=== PATIENT | male | born 1950 ===

== ENCOUNTER 2021-03-22 11:14 | Observation (INO) ==
[~2021-03-22 11:14] MED LIST: IRINOTECAN SCH; Ondansetron ODT 4 mg TAB 4 MG TAB SL PRN
[2021-03-22] MEDS ORDERED: Ondansetron 4 mg VIAL 2 MG/ML 2 ml VIAL ONE ×2 (11:47→15:18)
[2021-03-22] MEDS ORDERED: Naloxone 0.4 mg VIAL 0.4 mg/ml 1 ml VIAL IV PUSH PRN (12:04)
[2021-03-22 12:28] LABS: ABS Eosinophils 0.1 10^3/ul (0-0.6); ABS Monocytes 0.7 10^3/ul (0-0.8); ABS Neutrophils 4.6 10^3/ul (1.5-7.7); Eosinophil % 1.3 %; Hematocrit 42 % (42-52); Hemoglobin 14.5 g/dL (14.0-18.0); Lymphocyte % 14.9 %; Mean Corpuscular HGB Conc 34 g/dL (31-36); Mean Corpuscular Hemoglobin 37 pg (27-31); Mean Corpuscular Volume 108 fL (80-94); Mean Platelet Volume 8.2 fL (7.4-10.4); Platelet Count 179 10^3/uL (150-450); Red Blood Count 3.91 10^6 /uL (4.18-5.48); Red Cell Distribution Width 16 % (10-15); White Blood Count 6.4 10^3/uL (3.5-10.8)
[2021-03-22 12:30] LABS: Activated Partial Thrombo Time 32.7 seconds (26.0-38.0); INR 1.11 (0.86-1.15)
[2021-03-22] MEDS ORDERED: Lidocaine 1% VIAL 10 MG/ML VIAL ONE (12:33)
[2021-03-22] MEDS ORDERED: Heparin 2 UNITS/ML IVPREMIX 2,000 UNIT/1,000 ML BAG IV ONE (12:34)
[2021-03-22] MEDS ORDERED: Iohexol 350 (CONTRAST) 200 ML MDV IV ONE ×4 (12:34→14:50)
[2021-03-22 12:39] LABS: Albumin 4.2 g/dL (3.2-5.2); Calcium 9.6 mg/dL (8.6-10.3); Globulin 4.2 g/dL (2-4); Potassium 4.1 mmol/L (3.5-5.0); Total Protein 8.4 g/dL (6.4-8.9)
[2021-03-22] MEDS ORDERED: Midazolam 5 mg/5 ml VIAL 1 mg/ml 5 ml VIAL (5 mg) ONE ×2 (12:42→15:37)
[2021-03-22] MEDS ORDERED: fentaNYL 100 mcg/2 ml 50 MCG/ML VIAL ONE ×3 (12:42→16:01)
[2021-03-22] MEDS ORDERED: Heparin 2 UNITS/ML IVPREMIX 1,000 UNIT/500 ML BAG IV ONE ×2 (13:17→14:08)
[2021-03-22] MEDS ORDERED: HYDROmorphone PCA 20 MG/20 ML PCA.SYRING PCA SCH (15:30)
[2021-03-22] MEDS: NS 0.9% 1000 ml BAG 1,000 ML IV SCH ×2 (16:36→21:15)
[2021-03-23 05:15] LABS: ABS Lymphocytes 0.6 10^3/ul (1.0-4.8); ABS Monocytes 0.9 10^3/ul (0-0.8); ABS Neutrophils 6.2 10^3/ul (1.5-7.7); Hematocrit 37 % (42-52); Hemoglobin 12.5 g/dL (14.0-18.0); Lymphocyte % 8.1 %; Mean Corpuscular HGB Conc 34 g/dL (31-36); Mean Corpuscular Hemoglobin 37 pg (27-31); Mean Corpuscular Volume 110 fL (80-94); Mean Platelet Volume 8.1 fL (7.4-10.4); Platelet Count 150 10^3/uL (150-450); Red Blood Count 3.37 10^6 /uL (4.18-5.48); Red Cell Distribution Width 17 % (10-15); White Blood Count 7.8 10^3/uL (3.5-10.8)
[2021-03-23 05:31] LABS: Albumin 3.7 g/dL (3.2-5.2); Calcium 8.8 mg/dL (8.6-10.3); Globulin 3.6 g/dL (2-4); Potassium 4.2 mmol/L (3.5-5.0); Total Bilirubin 0.8 mg/dL (0.2-1.0); Total Protein 7.3 g/dL (6.4-8.9); eGFR CKD-EPI 93.3 (>60)
[2021-03-23] MEDS: NS 0.9% 1000 ml BAG 1,000 ML IV SCH (07:09)
[2021-03-23 08:50] VITALS: BP 117/75
== END 2021-03-23 12:45 | disposition home or self-care (01) ==
LOC: CHICATH 11:14 → SSU 11:14
PROVIDERS: ADMIT Internal Medicine Medical Oncology; ATTEND Internal Medicine Medical Oncology

== ENCOUNTER 2021-07-19 09:20 | Observation (INO) ==
[~2021-07-19 09:20] MED LIST changes: +IRINOTECAN IVPB SCH; -IRINOTECAN SCH; -Ondansetron ODT 4 mg TAB 4 MG TAB SL PRN
[2021-07-19] MEDS ORDERED: Nitro 2% OINT (Nitroglycerin) 1 INCH/PAK ONE (10:04)
[2021-07-19] MEDS ORDERED: Midazolam 5 mg/5 ml VIAL 1 mg/ml 5 ml VIAL (5 mg) ONE (10:10)
[2021-07-19] MEDS ORDERED: Lidocaine 1% MPF 5 ML VIAL ONE (10:42)
[2021-07-19] MEDS ORDERED: Heparin 2 UNITS/ML IVPREMIX 3,000 UNIT/1,500 ML BAG IV ONE (10:42)
[2021-07-19] MEDS ORDERED: Iohexol 350 (CONTRAST) 200 ML MDV IV ONE ×2 (10:42→11:42)
[2021-07-19] MEDS ORDERED: cefTRIAXone 1 gm/50 mL D5W 1 GM/50 ML BAG IV ONE (10:45)
[2021-07-19] MEDS ORDERED: nitroGLYCERIN DRIP 25,000 MCG/250 ML BTL ONE (10:46)
[2021-07-19] MEDS ORDERED: Heparin 1,000 UNIT/ML 10 ml (10,000 UNITS) CATHLAB/DIALYSIS ONE (10:46)
[2021-07-19] MEDS ORDERED: VERAPAMIL 2.5 MG/ML 2 ML VIAL ** 5 mg/2 ml ONE (10:47)
[2021-07-19] MEDS ORDERED: fentaNYL 100 mcg/2 ml 50 MCG/ML VIAL ONE ×2 (10:49→14:11)
[2021-07-19] MEDS ORDERED: HYDROmorphone PCA 1 MG/ML Titrat per Protocol PCA SCH (11:00)
[2021-07-19] MEDS: NS 0.9% 1,000 ML IV SCH ×2 (11:00→20:54)
[2021-07-19] MEDS ORDERED: Midazolam 5 mg/5 ml VIAL 1 mg/ml 5 ml VIAL (5 mg) IV SLOW PU ONE (11:00)
[2021-07-19] MEDS ORDERED: Ondansetron ODT 4 mg TAB 4 MG TAB SL PRN (13:03)
[2021-07-19] MEDS ORDERED: Ondansetron 4 mg VIAL 2 MG/ML 2 ml VIAL ONE (14:13)
[2021-07-19] MEDS: Ondansetron 4 mg VIAL 2 MG/ML 2 ml VIAL IV PRN (21:02)
[2021-07-20] MEDS: Ondansetron 4 mg VIAL 2 MG/ML 2 ml VIAL IV PRN (03:34)
[2021-07-20 06:23] LABS: ABS Lymphocytes 0.5 10^3/ul (1.0-4.8); ABS Monocytes 0.6 10^3/ul (0-0.8); ABS Neutrophils 4.7 10^3/ul (1.5-7.7); Eosinophil % 0.1 %; Hematocrit 36 % (42-52); Hemoglobin 12.2 g/dL (14.0-18.0); Lymphocyte % 8.1 %; Mean Corpuscular HGB Conc 34 g/dL (31-36); Mean Corpuscular Hemoglobin 37 pg (27-31); Mean Corpuscular Volume 108 fL (80-94); Mean Platelet Volume 8.4 fL (7.4-10.4); Platelet Count 128 10^3/uL (150-450); Red Blood Count 3.31 10^6 /uL (4.18-5.48); Red Cell Distribution Width 18 % (10-15); White Blood Count 5.8 10^3/uL (3.5-10.8)
[2021-07-20 06:34] LABS: Albumin 3.4 g/dL (3.2-5.2); Calcium 8.5 mg/dL (8.6-10.3); Globulin 3.4 g/dL (2-4); Potassium 3.8 mmol/L (3.5-5.0); Total Bilirubin 0.8 mg/dL (0.2-1.0); Total Protein 6.8 g/dL (6.4-8.9); eGFR CKD-EPI 99.2 (>60)
[2021-07-20] MEDS: NS 0.9% 1,000 ML IV SCH (07:26)
[2021-07-20] MEDS ORDERED: Al Hydrox/Mg Hydrox/Simet LIQ 30 ML UDC PO ONE (08:34)
[2021-07-20] MEDS ORDERED: Metoclopramide 5 MG/ML VIAL (10 mg) IV PRN (08:35)
[2021-07-20 12:39] VITALS: BP 115/69
== END 2021-07-20 13:35 | disposition home or self-care (01) ==
LOC: SSU 09:20 → CHICATH 09:20 → SSU 19:11
PROVIDERS: ADMIT Internal Medicine Medical Oncology; ATTEND Student in an Organized Health Care Education/Training Program

== ENCOUNTER 2022-11-19 09:51 | Inpatient (IN) ==
[~2022-11-19 09:51] MED LIST changes: +Cefepime 2 GM in NS 0.9% 50 ML BAG IVPB SCH; -IRINOTECAN IVPB SCH
[2022-11-19] MEDS ORDERED: Magnesium Sulfate 2 gm BAG 2 GM/50 ML BAG ONE (10:06)
[2022-11-19 10:20] LABS: ABS Neutrophils 29.2 10^3/uL (1.5-7.6); Hemoglobin 13.7 g/dL (13.2-16.3); Mean Corpuscular Hemoglobin 36.6 pg (27-33); Mean Corpuscular Hgb Conc 33.5 g/dL (31-36); Mean Corpuscular Volume 109.2 fL (80-97); Mean Platelet Volume 8.3 fL (7.5-11.2); Platelet Count 96 10^3/uL (150-450); Red Blood Count 3.75 10^6/uL (4.06-5.63); Red Cell Distribution Width 18.7 % (12-17); White Blood Count 32.8 10^3/uL (3.6-10.2)
[2022-11-19 10:36] LABS: Albumin 3.3 g/dL (3.2-5.2); Calcium 9.1 mg/dL (8.6-10.3); Creatinine, Serum 1.67 mg/dL (0.67-1.17); Globulin 3.4 g/dL (2-4); Magnesium 1.7 mg/dL (1.9-2.7); Potassium 4.1 mmol/L (3.5-5.0); Total Bilirubin 2.1 mg/dL (0.2-1.0); Total Protein 6.7 g/dL (6.4-8.9); eGFR CKD-EPI 42.9 (>60)
[2022-11-19 10:42] LABS: ABS Basophils 0.1 10^3/uL (0.0-0.1); ABS Lymphocytes 0.5 10^3/uL (1.0-4.8); ABS Nucleated RBC 0.11 10^3/ul; Lymphocyte % 1.6 %; Nucleated Red Blood Cells % 0.3 /100 WBC (0.0-0.4)
[2022-11-19 13:40] LABS: Urine Appearance Cloudy; Urine Bilirubin Negative (Negative); Urine Blood Negative (Negative); Urine Color Yellow; Urine Glucose 1+(50 mg/dL) (Negative); Urine Ketones Negative (Negative); Urine Nitrite Negative (Negative); Urine Protein 1+(30 mg/dL) (Negative); Urine Specific Gravity 1.015 (1.002-1.030); Urine Urobilinogen Negative (Negative)
[2022-11-19 13:51] LABS: Urine Amorphous Crystals Present (Absent); Urine Bacteria 1+ (Absent); Urine Granular Casts Present (Absent); Urine Red Blood Cell Trace(0-2/hpf) (Absent); Urine Squamous Epithelial Cell Present (Absent); Urine White Blood Cell 1+(6-10/hpf) (Absent)
[2022-11-19] MEDS ORDERED: HYDROcodone/ACETAMIN 5/325 mg TAB ONE (14:14)
[2022-11-19] MEDS ORDERED: Piperacillin/Tazobac 3.375 BAG 3.375 GM/100 ML BAG IV ONE (16:58)
[2022-11-19] MEDS ORDERED: Zosyn per Pharmacy NOTE FOLLOW UP SCH (17:00)
[2022-11-19] MEDS: NS 0.9% 1000 ml BAG 1,000 ML IV SCH (18:39)
[2022-11-19] MEDS: HYDROcodone/ACETAMIN 5/325 mg TAB PO PRN ×2 (18:39→22:39)
[2022-11-19] MEDS: ZOSYN 3.375 GM Q8H per EXTENDED INFUSION IV SCH (22:40)
[2022-11-20] MEDS: NS 0.9% 1000 ml BAG 1,000 ML IV SCH ×2 (04:36→22:06)
[2022-11-20] MEDS: Cefepime 2 GM in Dextrose 2 GM/50 ML BAG IV SCH ×2 (05:05→18:27)
[2022-11-20] MEDS: HYDROcodone/ACETAMIN 5/325 mg TAB PO PRN ×4 (05:09→20:29)
[2022-11-20] MEDS: ZOSYN 3.375 GM Q8H per EXTENDED INFUSION IV SCH ×3 (05:41→22:06)
[2022-11-20 06:07] LABS: Hematocrit 30.6 % (38-53); Hemoglobin 10.4 g/dL (13.2-16.3); Mean Corpuscular Hemoglobin 37.2 pg (27-33); Mean Corpuscular Hgb Conc 34.2 g/dL (31-36); Red Blood Count 2.81 10^6/uL (4.06-5.63); Red Cell Distribution Width 18.7 % (12-17); White Blood Count 11.2 10^3/uL (3.6-10.2)
[2022-11-20 06:36] LABS: Albumin 2.6 g/dL (3.2-5.2); Creatinine, Serum 1.19 mg/dL (0.67-1.17); Globulin 2.7 g/dL (2-4); Magnesium 2.1 mg/dL (1.9-2.7); Potassium 3.6 mmol/L (3.5-5.0); Total Bilirubin 1.5 mg/dL (0.2-1.0); Total Protein 5.3 g/dL (6.4-8.9); eGFR CKD-EPI 64.5 (>60)
[2022-11-20 08:49] LABS: ABS Eosinophils 0.1 10^3/uL (0.0-0.5); ABS Lymphocytes 0.5 10^3/uL (1.0-4.8); ABS Monocytes 1.5 10^3/uL (0.0-1.1); ABS Neutrophils 9.2 10^3/uL (1.5-7.6); Eosinophil % 0.8 %; Lymphocyte % 4.7 %; Mean Platelet Volume 8.5 fL (7.5-11.2); Platelet Count 38 10^3/uL (150-450)
[2022-11-21] MEDS: HYDROcodone/ACETAMIN 5/325 mg TAB PO PRN ×5 (03:06→22:24)
[2022-11-21] MEDS ORDERED: Calcium Carb (TUMS) 500 mg CHEW TAB PO ONE ×2 (03:18→21:02)
[2022-11-21] MEDS: Cefepime 2 GM in Dextrose 2 GM/50 ML BAG IV SCH ×2 (05:25→19:14)
[2022-11-21] MEDS: ZOSYN 3.375 GM Q8H per EXTENDED INFUSION IV SCH (06:00)
[2022-11-21 09:23] LABS: Hematocrit 32.4 % (38-53); Hemoglobin 11.4 g/dL (13.2-16.3); Mean Corpuscular Hemoglobin 37.6 pg (27-33); Mean Corpuscular Hgb Conc 35.2 g/dL (31-36); Mean Corpuscular Volume 106.8 fL (80-97); Red Blood Count 3.04 10^6/uL (4.06-5.63); Red Cell Distribution Width 18.4 % (12-17); White Blood Count 10.5 10^3/uL (3.6-10.2)
[2022-11-21 09:45] LABS: Calcium 7.6 mg/dL (8.6-10.3); Magnesium 1.7 mg/dL (1.9-2.7); Potassium 3.3 mmol/L (3.5-5.0)
[2022-11-21 09:51] LABS: Creatinine, Serum 0.96 mg/dL (0.67-1.17); eGFR CKD-EPI 83.5 (>60)
[2022-11-21 10:01] LABS: ABS Basophils 0.1 10^3/uL (0.0-0.1); ABS Eosinophils 0.1 10^3/uL (0.0-0.5); ABS Lymphocytes 0.5 10^3/uL (1.0-4.8); ABS Monocytes 1.3 10^3/uL (0.0-1.1); ABS Neutrophils 8.5 10^3/uL (1.5-7.6); ABS Nucleated RBC 0.01 10^3/ul; Mean Platelet Volume 8.4 fL (7.5-11.2); Platelet Count 44 10^3/uL (150-450)
[2022-11-21] MEDS ORDERED: Potassium Chlor 20 meq TAB.ER PO ONE (10:40)
[2022-11-21] MEDS ORDERED: Magnesium Sulfate IV 3 GM in NS 0.9% 100 ml BAG 100 ML IVPB ONE (10:40)
[2022-11-21] MEDS ORDERED: Diphenoxylat/Atrop 2.5-0.025mg TAB PO PRN (18:32)
[2022-11-22] MEDS ORDERED: PEG 3000 GI LAVAGE 1 GALLON PO ONE (02:48)
[2022-11-22] MEDS: HYDROcodone/ACETAMIN 5/325 mg TAB PO PRN ×5 (02:59→23:40)
[2022-11-22] MEDS: Ondansetron 4 mg VIAL 2 MG/ML 2 ml VIAL IV PRN ×2 (03:00→08:03)
[2022-11-22] MEDS: Cefepime 2 GM in Dextrose 2 GM/50 ML BAG IV SCH (05:16)
[2022-11-22 09:25] LABS: ABS Eosinophils 0.1 10^3/uL (0.0-0.5); ABS Lymphocytes 0.6 10^3/uL (1.0-4.8); ABS Monocytes 1.3 10^3/uL (0.0-1.1); ABS Neutrophils 8.9 10^3/uL (1.5-7.6); ABS Nucleated RBC 0.02 10^3/ul; Eosinophil % 1.2 %; Hematocrit 38.1 % (38-53); Hemoglobin 12.9 g/dL (13.2-16.3); Lymphocyte % 5.7 %; Mean Corpuscular Hemoglobin 36.8 pg (27-33); Mean Corpuscular Hgb Conc 33.9 g/dL (31-36); Mean Corpuscular Volume 108.6 fL (80-97); Mean Platelet Volume 10.7 fL (7.5-11.2); Nucleated Red Blood Cells % 0.2 /100 WBC (0.0-0.4); Platelet Count 75 10^3/uL (150-450); Red Blood Count 3.51 10^6/uL (4.06-5.63); Red Cell Distribution Width 18.4 % (12-17)
[2022-11-22 10:45] LABS: Calcium 8.4 mg/dL (8.6-10.3); Creatinine, Serum 0.79 mg/dL (0.67-1.17); Potassium 3.8 mmol/L (3.5-5.0); eGFR CKD-EPI 93.8 (>60)
[2022-11-22 11:53] LABS: Magnesium 1.9 mg/dL (1.9-2.7)
[2022-11-22] MEDS ORDERED: Lidocaine 2% JELLY 6 ML Topical TOPICAL ONE (12:03)
[2022-11-22] MEDS ORDERED: Naloxone 0.4 mg VIAL 0.4 mg/ml 1 ml VIAL IV PUSH PRN (12:03)
[2022-11-22] MEDS ORDERED: fentaNYL 100 mcg/2 ml 50 MCG/ML VIAL IV SLOW PU ONE (12:03)
[2022-11-22] MEDS ORDERED: Lactated Ringers 1000 ml BAG 1,000 ML IV ONE (12:03)
[2022-11-22] MEDS ORDERED: Midazolam 10 mg/10 ml VIAL 1 mg/ml 10 ml VIAL (10 mg) IV SLOW PU ONE (12:03)
[2022-11-22] MEDS ORDERED: Ondansetron 4 mg VIAL 2 MG/ML 2 ml VIAL IV ONE (12:03)
[2022-11-22] MEDS ORDERED: Flumazenil 0.5 mg/5 ml 0.1 MG/ML 5 ml VIAL IV PRN (12:03)
[2022-11-22] MEDS ORDERED: Midazolam 10 mg/10 ml VIAL 1 mg/ml 10 ml VIAL (10 mg) ONE (13:37)
[2022-11-22] MEDS ORDERED: fentaNYL 100 mcg/2 ml 50 MCG/ML VIAL ONE (13:37)
[2022-11-22] MEDS: ceFAZolin 2 GM in NS PREMIX 2 GM/100 ML BAG IVPB SCH ×2 (16:14→23:32)
[2022-11-22] MEDS: Diphenoxylat/Atrop 2.5-0.025mg TAB PO PRN ×2 (18:24→23:40)
[2022-11-23] MEDS: HYDROcodone/ACETAMIN 5/325 mg TAB PO PRN ×5 (04:05→22:16)
[2022-11-23] MEDS ORDERED: ceFAZolin 2 GM in NS PREMIX 2 GM/100 ML BAG IVPB SCH (06:00)
[2022-11-23] MEDS: Diphenoxylat/Atrop 2.5-0.025mg TAB PO PRN ×2 (06:30→14:15)
[2022-11-23] MEDS: Ondansetron 4 mg VIAL 2 MG/ML 2 ml VIAL IV PRN (06:31)
[2022-11-23] MEDS: ceFAZolin 2 GM PREMIX 2 GM/50 ML BAG IV SCH ×3 (06:31→22:17)
[2022-11-23 06:40] LABS: ABS Eosinophils 0.2 10^3/uL (0.0-0.5); ABS Lymphocytes 0.6 10^3/uL (1.0-4.8); ABS Monocytes 1.2 10^3/uL (0.0-1.1); ABS Neutrophils 5.9 10^3/uL (1.5-7.6); Eosinophil % 2.2 %; Hematocrit 31.2 % (38-53); Hemoglobin 10.8 g/dL (13.2-16.3); Mean Corpuscular Hemoglobin 37.4 pg (27-33); Mean Corpuscular Hgb Conc 34.8 g/dL (31-36); Mean Corpuscular Volume 107.3 fL (80-97); Mean Platelet Volume 8.7 fL (7.5-11.2); Platelet Count 55 10^3/uL (150-450); Red Cell Distribution Width 18.6 % (12-17); White Blood Count 7.9 10^3/uL (3.6-10.2)
[2022-11-23 06:47] LABS: Calcium 8.2 mg/dL (8.6-10.3); Creatinine, Serum 0.74 mg/dL (0.67-1.17); Potassium 3.9 mmol/L (3.5-5.0); eGFR CKD-EPI 95.7 (>60)
[2022-11-23] MEDS: Cholestyramine Resin 4 GM POWDER PO SCH ×2 (15:00→22:16)
[2022-11-23] MEDS: Calcium Carb (TUMS) 500 mg CHEW TAB PO PRN ×2 (15:01→22:17)
[2022-11-24] MEDS: HYDROcodone/ACETAMIN 5/325 mg TAB PO PRN ×4 (02:51→20:43)
[2022-11-24] MEDS: ceFAZolin 2 GM PREMIX 2 GM/50 ML BAG IV SCH ×3 (05:17→20:49)
[2022-11-24] MEDS: Diphenoxylat/Atrop 2.5-0.025mg TAB PO PRN ×3 (05:21→19:38)
[2022-11-24 06:06] LABS: ABS Eosinophils 0.1 10^3/uL (0.0-0.5); ABS Lymphocytes 0.6 10^3/uL (1.0-4.8); ABS Monocytes 1.3 10^3/uL (0.0-1.1); ABS Neutrophils 6.6 10^3/uL (1.5-7.6); ABS Nucleated RBC 0.01 10^3/ul; Eosinophil % 1.7 %; Hematocrit 34.2 % (38-53); Hemoglobin 11.9 g/dL (13.2-16.3); Lymphocyte % 6.9 %; Mean Corpuscular Hemoglobin 37.1 pg (27-33); Mean Corpuscular Hgb Conc 34.7 g/dL (31-36); Mean Corpuscular Volume 107.1 fL (80-97); Mean Platelet Volume 9.5 fL (7.5-11.2); Nucleated Red Blood Cells % 0.1 /100 WBC (0.0-0.4); Platelet Count 80 10^3/uL (150-450); White Blood Count 8.6 10^3/uL (3.6-10.2)
[2022-11-24 06:16] LABS: Albumin 3.1 g/dL (3.2-5.2); Albumin/Globulin Ratio 0.9 (1-3); Calcium 8.5 mg/dL (8.6-10.3); Creatinine, Serum 0.72 mg/dL (0.67-1.17); Globulin 3.3 g/dL (2-4); Potassium 3.8 mmol/L (3.5-5.0); Total Bilirubin 1.5 mg/dL (0.2-1.0); Total Protein 6.4 g/dL (6.4-8.9); eGFR CKD-EPI 96.5 (>60)
[2022-11-24] MEDS: Cholestyramine Resin 4 GM POWDER PO SCH (09:54)
[2022-11-24] MEDS ORDERED: Cholestyramine Resin 4 GM POWDER PO ONE (10:11)
[2022-11-24] MEDS: Calcium Carb (TUMS) 500 mg CHEW TAB PO PRN (14:25)
[2022-11-25] MEDS: HYDROcodone/ACETAMIN 5/325 mg TAB PO PRN ×3 (03:08→12:25)
[2022-11-25] MEDS: Diphenoxylat/Atrop 2.5-0.025mg TAB PO PRN ×3 (03:08→15:17)
[2022-11-25] MEDS: ceFAZolin 2 GM PREMIX 2 GM/50 ML BAG IV SCH ×2 (06:01→15:17)
[2022-11-25 06:03] LABS: ABS Eosinophils 0.1 10^3/uL (0.0-0.5); ABS Lymphocytes 0.6 10^3/uL (1.0-4.8); ABS Neutrophils 6.3 10^3/uL (1.5-7.6); ABS Nucleated RBC 0.01 10^3/ul; Eosinophil % 1.7 %; Hematocrit 30.5 % (38-53); Hemoglobin 10.5 g/dL (13.2-16.3); Lymphocyte % 7.4 %; Mean Corpuscular Hemoglobin 37.1 pg (27-33); Mean Corpuscular Hgb Conc 34.5 g/dL (31-36); Mean Corpuscular Volume 107.7 fL (80-97); Mean Platelet Volume 9.9 fL (7.5-11.2); Nucleated Red Blood Cells % 0.1 /100 WBC (0.0-0.4); Platelet Count 73 10^3/uL (150-450); Red Blood Count 2.83 10^6/uL (4.06-5.63); Red Cell Distribution Width 18.3 % (12-17)
[2022-11-25 06:21] LABS: Calcium 7.8 mg/dL (8.6-10.3); Creatinine, Serum 0.68 mg/dL (0.67-1.17); Potassium 4.4 mmol/L (3.5-5.0); eGFR CKD-EPI 98.1 (>60)
[2022-11-25] MEDS ORDERED: Cholestyramine Resin 4 GM POWDER PO SCH (09:00)
[2022-11-25 15:04] VITALS: BP 122/78
[2022-11-26 01:10] LABS: Anaplasma phagocytophilum Negative (Negative); B. miyamotoi PCR, B Negative (Negative); Babesia divergens/MO-1 Negative (Negative); Babesia ducani Negative (Negative); Ehrlichia chaffeensis Negative (Negative); Ehrlichia ewingii/canis Negative (Negative); Ehrlichia muris eauclairensis Negative (Negative)
[2022-11-27 09:36] LABS: Percent Fat 24 % fat (< 20)
== END 2022-11-25 15:55 | disposition home or self-care (01) | DRG 872 ==
LOC: CHOA 09:51 → SUATTDRO 17:55 → MED 17:55
PROVIDERS: ADMIT Internal Medicine Hematology & Oncology; ATTEND Internal Medicine